=== PATIENT | female | born 1995 | race Caucasian/White ===

== ENCOUNTER 2017-10-15 15:37 | Emergency (ER) | payer SELFPAY ==
[2017-10-15 16:54] LABS: ABS Basophils 0.1 10^3/ul (0-0.2); ABS Eosinophils 0.3 10^3/ul (0-0.6); ABS Lymphocytes 2.2 10^3/ul (1.0-4.8); ABS Monocytes 0.4 10^3/ul (0-0.8); ABS Neutrophils 2.6 10^3/ul (1.5-7.7); ABS Nucleated RBC 0 10^3/ul; Eosinophil % 4.9 % (0-6); Hematocrit 38 % (35-47); Hemoglobin 13.4 g/dl (12.0-16.0); Lymphocyte % 40.8 % (25-47); Mean Corpuscular HGB Conc 35 g/dl (31-36); Mean Corpuscular Hemoglobin 32 pg (27-31); Mean Corpuscular Volume 93 fL (80-97); Mean Platelet Volume 8.2 um3 (7.4-10.4); Nucleated Red Blood Cells % 0.2; Platelet Count 284 10^3/ul (150-450); Red Blood Count 4.13 10^6/ul (4.00-5.40); Red Cell Distribution Width 13 % (10.5-15); White Blood Count 5.5 10^3/ul (3.5-10.8)
[2017-10-15 17:05] VITALS: BP 110/69
[2017-10-15 17:09] LABS: INR 0.92 (0.77-1.02)
[2017-10-15 17:14] LABS: EGFR Non-African American 118.3 (>60)
--- NOTE | 2017-10-15 17:44 | ED ---
GI/ HPI - HPI Summary HPI Summary: 22F presents with vaginal bleeding for past day. She states she had a child a year ago. She states that she developed her period again three months ago and is now on a progesterone only control pill for the past 3 months. She has been on this control before. States she had her normal period 2 weeks ago and there is nothing different about this menstrual cycle. It lasted her normal 5 days. She states that yesterday she started to develop some cramping and some bleeding. She is worried that she may be miscarrying. She states the bleeding has been increasing. She denies any pain currently. She is soaking a pad every 2 hours. She denies any dizziness, palpitations or weakness. She denies any other symptoms. She has not taking anything for pain. She denies any abdominal pain currently. No nausea or vomiting. No diarrhea or constipation. She has no medical conditions. No family history of any bleeding disorders. - History of Current Complaint Chief Complaint: EDVaginalBleeding Time Seen by Provider: 10/15/17 16:37 Stated Complaint: HEAVY BLEEDING /CRAMPING Pain Intensity: 2 - Allergy/Home Medications Home Medications: Home Medications Norethindrone (NF) [Marisa (NF)] 0.35 mg PO DAILY 10/15/17 [History Confirmed 10/15/17] PMH/Surg Hx/FS Hx/Imm Hx Endocrine/Hematology History: Denies: Hx Anticoagulant Therapy Cardiovascular History: Denies: Hx Hypertension Infectious Disease History: No Infectious Disease History: Denies: Traveled Outside the [place] in Last 30 Days - Family History Known Family History: Negative: Blood Disorder - Social History Alcohol Use: None Substance Use Type: Reports: None Smoking Status (MU): Never Smoked Tobacco Review of Systems Negative: Fever Negative: Chest Pain Negative: Shortness Of Breath Positive: Abdominal Pain, Other - vaginal bleeding. Negative: Vomiting, Nausea All Other Systems Reviewed And Are Negative: Yes Physical Exam Triage Information Reviewed: Yes Vital Signs On Initial Exam: Initial Vitals Temp Pulse Resp BP Pulse Ox 97.4 F 72 16 118/68 99 10/15/17 15:41 10/15/17 15:41 10/15/17 15:41 10/15/17 15:41 10/15/17 15:41 Vital Signs Reviewed: Yes Appearance: Positive: Well-Appearing Skin: Positive: Warm, Dry Head/Face: Positive: Normal Head/Face Inspection Eyes: Positive: Normal, Conjunctiva Clear ENT: Positive: Pharynx normal Respiratory/Lung Sounds: Positive: Clear to Auscultation, Breath Sounds Present Cardiovascular: Positive: Normal, RRR Abdomen Description: Positive: Nontender, Soft Bowel Sounds: Positive: Present Pelvic Exam: Positive: External Exam Normal, Bimanual Exam Normal, No Cerv. Motion Tender, Active Bleeding - from cervix mild, Blood - 3cc of blood in vaginal vault Neurological: Positive: Normal Psychiatric: Positive: Normal Diagnostics - Vital Signs Vital Signs Temp Pulse Resp BP Pulse Ox 10/15/17 17:00 64 99 10/15/17 16:35 68 110/69 100 10/15/17 16:05 75 126/71 99 10/15/17 15:41 97.4 F 72 16 118/68 99 - Laboratory Lab Results: Lab Results 10/15/17 10/15/17 10/15/17 Range/Units 16:44 16:44 16:44 WBC 5.5 (3.5-10.8) 10^3/ul RBC 4.13 (4.00-5.40) 10^6/ul Hgb 13.4 (12.0-16.0) g/dl Hct 38 (35-47) % MCV 93 (80-97) fL MCH 32 H (27-31) pg MCHC 35 (31-36) g/dl RDW 13 (10.5-15) % Plt Count 284 (150-450) 10^3/ul MPV 8.2 (7.4-10.4) um3 Neut % (Auto) 46.6 (38-83) % Lymph % (Auto) 40.8 (25-47) % [place] % (Auto) 6.7 (0-7) % Eos % (Auto) 4.9 (0-6) % Baso % (Auto) 1.0 (0-2) % Absolute Neuts (auto) 2.6 (1.5-7.7) 10^3/ul Absolute Lymphs (auto) 2.2 (1.0-4.8) 10^3/ul Absolute Monos (auto) 0.4 (0-0.8) 10^3/ul Absolute Eos (auto) 0.3 (0-0.6) 10^3/ul Absolute Basos (auto) 0.1 (0-0.2) 10^3/ul Absolute Nucleated RBC 0 10^3/ul Nucleated RBC % 0.2 INR (Anticoag Therapy) 0.92 (0.77-1.02) APTT 30.5 (26.0-36.3) seconds Sodium 138 (135-145) mmol/L Potassium 4.0 (3.5-5.0) mmol/L Chloride 107 (101-111) mmol/L Carbon Dioxide 26 (22-32) mmol/L Anion Gap 5 (2-11) mmol/L BUN 12 (6-24) mg/dL Creatinine 0.64 (0.51-0.95) mg/dL Est GFR ( Amer) 143.1 (>60) Est GFR (Non-Af Amer) 118.3 (>60) BUN/Creatinine Ratio 18.8 (8-20) Glucose 103 H (70-100) mg/dL Calcium 9.0 (8.6-10.3) mg/dL Total Bilirubin 0.40 (0.2-1.0) mg/dL AST 11 L (13-39) U/L ALT 10 (7-52) U/L Alkaline Phosphatase 64 (34-104) U/L Total Protein 6.4 (6.4-8.9) g/dL Albumin 4.1 (3.2-5.2) g/dL Globulin 2.3 (2-4) g/dL Albumin/Globulin Ratio 1.8 (1-3) Beta HCG, Quant < 0.60 mIU/mL Result Diagrams: 10/15/17 16:44 10/15/17 16:44 Lab Statement: Any lab studies that have been ordered have been reviewed, and results considered in the medical decision making process. GIGU Course/Dx - Course Course Of Treatment: 22F presents with vaginal bleeding for past day. She states she had a child a year ago. She states that she developed her period again three months ago and is now on a progesterone only control for the past 3 months. She has been on this control before. States she had her normal period 2 weeks ago and there is nothing different about this menstrual cycle. It lasted her normal 5 days. She states that yesterday she started to develop some cramping and some bleeding. She is worried that she may be miscarrying. She states the bleeding has been increasing. She denies any pain currently. She is soaking a pad every 2 hours. She denies any dizziness, palpitations or weakness. She denies any other symptoms. She has not taking anything for pain. She denies any abdominal pain currently. No nausea or vomiting. No diarrhea or constipation. She has no medical conditions. No family history of any bleeding disorders. On exam nontender abdomen. On vaginal exam has about 3 cc of blood in the vaginal vault. Has some bleeding from the cervix. Labs hemoglobin and crit normal. HCG in less than 0.6. Explained that could change control to do a temporary taper but that this will take some time. Explained could should just take ibuprofen for pain and establish care at [facility]. warned signs to return to ED for. Patient understands and agrees with plan. - Diagnoses Differential Diagnoses - Female: Ectopic , Pelvic Inflammatory Disease , Other - DUB Provider Diagnoses: Vaginal bleeding Discharge - Sign-Out/Discharge Documenting (check all that apply): Patient Departure - Discharge Plan Condition: Good Disposition: HOME Patient Education Materials: Dysfunctional Uterine Bleeding (ED) Referrals: [facility]FERR[facility] [Outside] Thaddeus Stevenson MD [Medical Doctor] - Additional Instructions: drink plenty of fluids Take ibuprofen or tyenlol every 6 hours as needed for pain Establish care with [facility], a referral was given Return to ED if develop persistent bleeding with severe dizziness, syncope or any new or worsening symptoms - Billing Disposition and Condition Condition: GOOD Disposition: Home
== END 2017-10-15 17:59 | disposition home or self-care (01) ==
LOC: ED 15:37
DX: N93.9 Abnormal uterine and vaginal bleeding, unspecified (principal)
CPT/HCPCS: 36415; 80053; 84702; 85025; 85610; 85730; 87480; 87491; 87510; 87591; 87661; 99282

== ENCOUNTER 2018-11-08 15:26 | Emergency (ER) | payer OTHER ==
[2018-11-08 15:39] VITALS: BP 125/65
--- NOTE | 2018-11-08 15:54 | UC ---
Respiratory Complaint HPI - HPI Summary HPI Summary: Non productive cough x 1 mo. denies allergies, post nasal drip, wheezing or reflux. has tried otc meds w/ no relief. denies sick contacts. was living in [place] for approx 1 mo. and landed in [place] 1 wk ago. - History of Current Complaint Chief Complaint: UCRespiratory Stated Complaint: COUGH Time Seen by Provider: 11/08/18 15:31 Hx Obtained From: Patient Hx Last Menstrual Period: 10/10/2018 Pain Intensity: 3 Pain Scale Used: 0-10 Numeric Aggravating Factors: Nothing Alleviating Factors: Nothing Associated Signs And Symptoms: Negative: Dyspnea, Fever, Chills, Hemoptysis - Allergies/Home Medications Allergies/Adverse Reactions: Allergies Allergy/AdvReac Type Severity Reaction Status Date / Time No Known Allergies Allergy Verified 11/08/18 15:39 Home Medications: Home Medications Methylphenidate TAB* [Ritalin TAB*] 11/08/18 [History] PMH/Surg Hx/FS Hx/Imm Hx - Additional Past Medical History Additional PMH: No chronic conditions. Previously Healthy: Yes Other History Of: Negative For: Anticoagulant Therapy - Surgical History Surgical History: None - Family History Known Family History: Negative: Blood Disorder - Social History Alcohol Use: None Substance Use Type: None Smoking Status (MU): Never Smoked Tobacco Review of Systems All Other Systems Reviewed And Are Negative: Yes Constitutional: Negative: Fever, Chills, Fatigue Skin: Negative: Rash Respiratory: Positive: Cough. Negative: Other - wheezing Cardiovascular: Positive: Negative Gastrointestinal: Negative: Vomiting Physical Exam Triage Information Reviewed: Yes Appearance: Well-Appearing Vital Signs: Initial Vital Signs Temp 99.3 F 11/08/18 15:31 Pulse 79 11/08/18 15:31 Resp 16 11/08/18 15:31 BP 125/65 11/08/18 15:31 Pulse Ox 100 11/08/18 15:31 Vital Signs Reviewed: Yes Eyes: Positive: Conjunctiva Clear ENT: Positive: Pharynx normal, TMs normal Neck exam: Normal Respiratory Exam: Normal Cardiovascular Exam: Normal Neurological: Positive: Alert Skin: Negative: Rashes Diagnostics - Radiology No standard instances Radiology Interpretation Completed By: Radiologist Summary of Radiographic Findings: negative cxr Respiratory Course/Dx - Course Course Of Treatment: Chronic cough for approx 1 mo. Has been living in [place] until 1 wk ago. No other symptoms. Vitals are good. Asthma, post nasal drip/allergies and reflux are on ddx. Trial of albuterol for now and have asked her to get worked up with primary care. CXR was unremarkable. - Differential Dx/Diagnosis Differential Diagnosis/HQI/PQRI: Foreign Body, Aspiration, Asthma, Influenza, Laryngitis, Lower Resp Infection, Sinusitis Provider Diagnosis: Chronic cough Discharge - Sign-Out/Discharge Documenting (check all that apply): Patient Departure All imaging exams completed and their final reports reviewed: Yes - Discharge Plan Condition: Good Disposition: HOME Prescriptions: Albuterol HFA INHALER* [Ventolin HFA Inhaler*] 2 puff INH Q4H PRN #1 mdi PRN Reason: Cough Patient Education Materials: Chronic Cough (ED) Referrals: No Primary Care Phys,NOPCP [Primary Care Provider] - Additional Instructions: Please follow up with the primary care provider on your insurance card. - Billing Disposition and Condition Condition: GOOD Disposition: Home
== END 2018-11-08 16:41 | disposition home or self-care (01) ==
LOC: UCEAST 15:26
DX: R05 Cough (principal)
CPT/HCPCS: 71046; 99212; G0463